=== PATIENT | male | born 1945 | race Caucasian/White ===

== ENCOUNTER 2023-03-10 23:32 | Observation (INO) | payer MEDICARE, OTHER, SELFPAY ==
[2023-03-10 19:32] VITALS: BP 98/68
[2023-03-10 20:18] LABS: % Basophils 0.2 % (0-2); % Eosinophils 0.1 % (0-6); % Immature Granulocytes 0.2 % (0-0.5); % Lymphocytes 10.7 % (20.5-51.1); % Neutrophils 76.8 % (42.2-75.2); Absolute Lymphocytes 0.9 10^3/uL (1.2-3.4); Absolute Neutrophils 6.5 10^3/uL (1.4-6.5); Hematocrit 40.5 % (39.0-52.0); Hemoglobin 14.4 g/dL (13.0-18.0); Mean Corp Hgb Conc. 35.6 g/dL (33.0-37.0); Mean Corpuscular Hgb 30.8 pg (27.0-31.0); Mean Corpuscular Volume 86.5 fL (80.0-94.0); Nucleated Red Blood Cells % 0 % (-); Red Blood Cell Count 4.68 10^6/uL (4.70-6.10); White Blood Cell Count 8.5 10^3/uL (4.8-10.8)
[2023-03-10 20:41] LABS: Platelet Count 84 10^3/uL (130-400)
--- NOTE | 2023-03-10 20:41 | ED.GENMED ---
History of Present Illness
General
Chief Complaint: Weakness
Source: patient
Exam Limitations: none
Time Seen by Provider: 03/10/23 20:26
Nursing documentation reviewed up to this point in time: agreed with
Travel History
Have you had any contact with someone who has COVID-19?: No
Do you have any symptoms of coronavirus? Fever > 100 degrees, chills, cough, shortness of breath, sore throat, loss of taste or smell, muscle aches, or headache?: No
History of Present Illness
History of Present Illness:
The patient is a 78-year-old man with a past medical history of coronary artery disease brought in by his for 2 days of intermittent confusion and disorientation, as well as decreased appetite, body aches and fatigue. The patient denies
specific pain. He reports overall severe generalized weakness and bodyaches. He reports a mild cough. He denies shortness of breath and chest pain. He denies abdominal pain. He reports mild constipation. He reports that he felt so weak that he
fell today in his closet and may have hit his head. His called 911 because she had a hard time getting him up off the closet floor.
Past History
Past History
ED Past Medical History: CAD, Cancer (Skin cancer), CHF, COPD, Hypercholesterolemia, NIDDM, [place], Psychiatric (Anxiety/ Depression) and Other (Sleep apnea, CPAP)
ED Past Surgical History: Cardiac (Pacer/ Defibulator)
Social History
Tobacco: Former smoker
Alcohol: Occasional
Drug: None
Personal:
Living: with family
Employment: Other
Family History
Family History: Other
Review of Systems
Review of Systems
Allergies reviewed?: Yes
Other source history: family
All Other Systems: ROS reviewed and negative except as documented in HPI and ROS
Constitutional: Reports fatigue
EENT: Reports no symptoms
Respiratory: Reports cough
Cardiac: Reports no symptoms
ABD/GI: Reports constipated and anorexia
: Reports no symptoms
Musculoskeletal: Reports muscle stiffness
Skin: Reports no symptoms
Neurological: Reports no symptoms
Endocrine: Reports no symptoms
Hematologic/Lymphatic: Reports no symptoms
Psychiatric: Reports no symptoms
Phy Exam
Physical Exam
Physical Exam:
Physical Exam
General: no apparent distress, not acutely ill. Atraumatic appearing face and head
Neck: supple. no meningeal signs. normal psoterior pharynx. Mild right paracervical neck tenderness without deformity
Heart: s1/s2 regular rate and rhythm, no vertebral spine tenderness
Lungs: no acute respiratory distress. clear bilaterally
Abdomen: normal bowel sounds. not tender. no CVAT
Neuro: alert and oriented. no focal neurological deficits
Skin: no rash
Psychiatric: well kept. interactive and cooperative
Extremities: no edema. no calf tenderness. negative homans. good distal pulses
Course
Orders/Labs/Results
Orders:
Orders
03/10/23 19:35
Electrocardiogram (*1) Urgent
Reason for Study: Fatigue / Weakness
EKG- Treatment ONCE
03/10/23 19:[address] [CT Head W/o Iv Contrast] Urgent
Comment:
Reason For Exam: fall with head strike
03/10/23 19:54
Complete Blood Count/With Diff Urgent
Comprehensive Metabolic Panel Urgent
TSH Urgent
Comment: ADD ON
03/10/23 19:55
Urinalysis Reflex To Culture Urgent
Date Specimen was Collected: 03/10/23
Time Specimen was Collected: 19:35
Urine Microscopic Reflex Cult Urgent
03/10/23 20:52
COVID-19 Antigen Urgent
Source: Nasal Swab
03/10/23 20:53
Add On- LAB Urgent
Tests Added?: TSH
03/10/23 20:54
CR Chest - 2 Views Urgent
Comment:
Reason For Exam: cough, weakness
03/10/23 21:02
CT Cervical Spine W/o Iv Contr Urgent
Comment:
Reason For Exam: fall, neck pain
03/10/23 21:04
Influenza A+B Rapid Molecular Urgent
TATO Source: Nasal Swab
Specimen Description:
03/10/23 22:09
0.9% Sodium Chloride 1000 ml [Nss] 1,000 ml IV BOLUS
Abnormal Lab Results
03/10/23 03/10/23
19:54 19:55
RBC 4.68 L 10^6/uL
(4.70-6.10)
Plt Count 84 L 10^3/uL
(130-400)
MPV 11.0 H fL
(7.4-10.4)
Absolute Lymphs (auto) 0.9 L 10^3/uL
(1.2-3.4)
Absolute Monos (auto) 1.0 H 10^3/uL
(0.1-0.6)
Neutrophils % 76.8 H %
(42.2-75.2)
Lymphocytes % 10.7 L %
(20.5-51.1)
Monocytes % 12.0 H %
(1.7-9.3)
Glucose 151 H mg/dl
(70-99)
Leukocyte Esterase Rfl Trace A
(Negative)
Urine Bacteria (Reflex) Few A
(Negative)
03/10/23 19:54
03/10/23 19:54
Vital Signs
Initial and Last Documented VS:
Initial Vital Signs
Temp Pulse Resp BP Pulse Ox
98.6 F 100 18 98/68 97
03/10/23 19:32 03/10/23 19:32 03/10/23 19:32 03/10/23 19:32 03/10/23 19:32
Last Documented Vital Signs
Temp Pulse Resp BP Pulse Ox
98.6 F 91 23 105/68 92
03/10/23 19:32 03/10/23 22:17 03/10/23 22:17 03/10/23 22:17 03/10/23 22:17
MDM/Problems Addressed
Differential Diagnosis Includes:
Pneumonia, UTI, dehydration
MDM/Problems Addressed:
Patient presents with acute generalized weakness, anorexia
Chronic conditions affecting care: CAD
*Radiology
Radiology exam reviewed: preliminary read by ED provider (Chest x-ray read by me. No acute disease) and radiology read reviewed
*Pulse Oximetry
Patient hypoxic: no
*EKG
Interpreted by ED Provider?: Yes
Interpretation: abnormal
Comparison EKG: no changes
Rate: normal
[place]: left axis deviation
Interval: normal interval
QRS Pattern: normal QRS
Ischemia: non-specific ST changes
*It Support Engineer Interpretation
Rate: normal
Interpretation: normal
Rhythm: sinus
*Critical Care Note
Total Time (30-74mins, 75-104mins- exclusive of procedures): Not Applicable
Data Reviewed
Review of Other/Old Records Reveals: Testing (EF 37% on echo from 09/2022)
Source: patient, spouse and previous hospital records
Patient Management
Social determinants of health affecting care: Living situation
Discussion with other providers: Hospitalist
Escalation/DeEscalation of care consider admission/obs:
is adamant that she does not feel comfortable taking her home due to his frequent falls and intermittent disorientation and confusion. She is insisting that he stay in the hospital for an MRI brain to rule out TIAs.
ED Attending Note
-
Portions of this chart may have been created with voice recognition software.� Occasional wrong word or��sound alike� substitutions may have occurred due to the inherent limitations of voice recognition software.
Discharge Plan
Departure
Patient Disposition: Admit
Date of Disposition: 03/10/23
Time of Disposition: 22:26
Admit to: Med/Surg
Presentation/result/management discussed w/ accepting MD/DO: Hospitalist
Discharge Problem:
Acute alteration in mental status
Interventions
Interventions:
*Risk Screen - Suicide Last Done: 03/10/23 19:32
*General Assessment Last Done: 03/10/23 19:32
*Neglect/Abuse Screening Last Done: 03/10/23 19:32
ED- Fall Risk Assessment Last Done: 03/10/23 21:02
*ED COVID-19 Vaccine History Last Done: 03/10/23 19:32
ED- Cardiac Assessment Last Done: 03/10/23 21:02
ED- Neurological Assessment Last Done: 03/10/23 20:54
ED- Pulmonary Assessment Last Done: 03/11/23 00:05
[2023-03-10 20:42] LABS: ALT (SGPT) 24 U/L (0-50); AST (SGOT) 26 U/L (17-59); Alkaline Phosphatase 59 U/L (38-126); Blood Urea Nitrogen 15 mg/dl (9-20); Calcium 9.6 mg/dl (8.4-10.2); Carbon Dioxide 28 mmol/L (22-30); Chloride 99 mmol/L (98-107); Glucose 151 mg/dl (70-99); Potassium 4.7 mmol/L (3.5-5.1); Sodium 138 mmol/L (135-145); Total Protein 6.6 g/dl (6.3-8.2); eGFR > 60.00
[2023-03-10 20:53] VITALS: BMI 29.3
[2023-03-10 21:15] LABS: COVID-19 Antigen Negative (Negative)
[2023-03-10 21:47] LABS: Urine Albumin Trace (Neg - Trace); Urine Bilirubin Negative (Negative); Urine Character Clear (Clear); Urine Color Yellow; Urine Glucose Negative (Negative); Urine Ketone Negative (Negative); Urine Leukocyte Trace (Negative); Urine Nitrite Negative (Negative); Urine Occult Blood Negative (Negative); Urine Urobilinogen Negative (Neg - 1+)
[2023-03-10 21:55] LABS: Urine Red Blood Cell None Seen /HPF (0-2); Urine Squamous Cell 0-2 /LPF (Few)
[2023-03-10 21:56] LABS: Urine Bacteria Few (Negative)
[2023-03-10 21:57] LABS: Urine Hyaline Cast 0-2 /LPF (0-2); Urine White Cell 0-2 /HPF (0-5)
[2023-03-10 21:58] LABS: TSH 0.91 uIU/ml (0.47-4.68)
[2023-03-10 22:17] VITALS: BP 105/68
[2023-03-10] MEDS: NSS 1000 IV (22:39)
--- NOTE | 2023-03-10 23:44 | HPS.HSE ---
Family Physician
-
Family Physician: Valeriano Bui
Chief Complaint
-
Incontinence / Weakness / Confusion
History of Present Illness
Patient is a 78y M with PMH significant for ASCVD, DM-II, CHF and COPD who presents to ED for evaluation of weakness, urinary incontinence and confusion. History obtained from patient and his at the bedside. Patient has had two episodes in
the past 6 weeks of nocturnal confusion, ataxia, incontinence followed by period of lethargy, weakness and 'not being himself' the following day. The initial episode occurred in January (01/21/23) and the second occurred last PM followed by
confusion and weakness today.
describes the episodes as patient waking around 1AM on both occasions stating he has the urge to urinate. He is incontinent of urine in the bed and then is able (with some difficulty) to getup and get to the bathroom. He has unsteady gait and
in January he fell on his way to the bathroom. Patient continues to be incontinent on the way to the bathroom and in the bathroom.
describes that he seems confused / staring blankly; however, she also notes that he does speak to her / answer questions. He was apparently standing in the shower, not moving - but responded angrily 'I am' when told him to wash himself.
The following day, patient was sluggish and seemed somewhat confused throughout the day.
He was brought to the ED here where evaluation including labs, urinalysis and CT of the head were all unremarkable.
Patient was discharged to home and had no similar episodes until last PM.
He again woke around 1 AM with urge to urinate and was incontinent in bed. On this occasion, he ambulated into the bathroom on his own and closed the door. He was again incontinent on the floor; however, on this occasion he began to clean the mess
himself. He was again speaking / answering 's questions. Today patient was lethargic and confused at times. He seemed to be his usual self for a brief period this afternoon; however, then found him on the floor of a closet appearing
'ashen' and confused. He was unable to get up - even with assistance and 20 minutes of effort on his 's part. EMS was called and patient was brought to the ED for further evaluation.
Patient teja do admit that he has been having some issues with poor memory / 'absent-mindedness' for some time now.
He has some numbness / tingling in the LUE that has been present x years. No other / new focal numbness or weakness.
In the ED at present, patient is resting comfortably. He denies any complaints at present.
Medical History
Past Medical History
Past Medical History: Reports Other
Additional Past Medical History:
ASCVD
Chronic HFrEF
Hypertension
DM-II
COPD
Past Surgical History: Reports Other
Additional Past Surgical History:
PTCA
AICD Placement
Skin Cancer Excisions
Social History
Tobacco: Former Smoker (Quit many years ago.)
Alcohol: Occasional
Drug: None
Personal:
Living: With Family
Family History
Family History: Other (Father: Prostate cancer Brother: Prostate cancer Mother: Pancreatic cancer)
Allergies / Home Medications
Allergies reflects when Allergies were last updated in [employer].
Home Medications with original date entered in [employer]
Allergy/Medication List:
Allergies
Allergy/AdvReac Type Severity Reaction Status Date / Time
No Known Allergies Allergy Verified 01/21/23 16:46
Home Medications
sertraline 50 mg tablet 50 mg PO DAILY 02/17/19
tamsulosin 0.4 mg capsule 0.4 mg PO QPM 02/17/19
carvedilol 3.125 mg tablet 3.125 mg PO BID #60 tabs 02/21/19
pantoprazole 40 mg tablet,delayed release 40 mg PO DAILY #30 tabs 02/21/19
atorvastatin 80 mg tablet 80 mg PO QPM #30 tabs 02/28/20
albuterol sulfate 90 mcg/actuation aerosol inhaler 2 puff inhalation R Q4 PRN sob/wheezing 03/10/23
aspirin 81 mg tablet,delayed release 81 mg PO DAILY 03/10/23
budesonide-formoterol HFA 160 mcg-4.5 mcg/actuation aerosol inhaler (Symbicort) 2 puff inhalation R BID 03/10/23
ezetimibe 10 mg tablet 10 mg PO QPM 03/10/23
furosemide 20 mg tablet 20 mg PO DAILY PRN swelling 03/10/23
losartan 25 mg tablet 25 mg PO DAILY 03/10/23
metformin 500 mg tablet 500 mg PO BID@0800,1700 03/10/23
Review of Systems
-
History Source: Patient
A 12 point ROS was completed and negative except as noted: Yes
Constitutional: Reports Fatigue and Chills; Denies Fever
EENT: Denies Sore Throat or Runny Nose
Respiratory: Denies Cough or Trouble Breathing
Cardiac: Denies Chest Pain or Palpitations
Abdomen/GI: Reports Other (Occasional incontinence of stool.); Denies Abdominal Pain, Nausea, Vomiting or Diarrhea
: Reports Frequency, Incontinence and Other (Nocturia); Denies Dysuria
Musculoskeletal: Denies Joint Pain, Joint Swelling or Edema
Neurological: Reports Numbness (LUE - chronic and unchanged.); Denies Dizzy, Headache or Weakness
Physical Exam
Vital Signs
Vital Signs
Temp Pulse Resp BP Pulse Ox
98.6 F 91 23 105/68 92
03/10/23 19:32 03/10/23 22:17 03/10/23 22:17 03/10/23 22:17 03/10/23 22:17
Physical Exam
General: Other (78y M in no acute distress.)
HEENT: Moist mucous membranes and PERRLA
Respiratory: Clear; No Wheezes, Rales or Rhonchi
Cardiac: S1/S2 and Regular Rhythm; No Murmur
GI: Soft, Non Tender, Non Distended and Normal Bowel Sounds
Rectal: Other (Incontinent of small amount of stool in his brief. Prostate enlarged / symmetric with tenderness.)
Musculoskeletal: No Clubbing, No Cyanosis and No Edema
Neuro: AO x 3
Laboratory Results
-
03/10/23 19:54
03/10/23 19:54
Laboratory Results
Total Bilirubin 1.0 mg/dl (0.2-1.3) 03/10/23 19:54
AST 26 U/L (17-59) 03/10/23:54
ALT 24 U/L (0-50) 03/10/23:54
Alkaline Phosphatase 59 U/L (38-126) 03/10/23 19:54
Impression/Plan
-
A/P: Patient is a 78y M with PMH significant for ASCVD, CHF and DM-II who presents to ED for evaluation after episodes of weakness, confusion, incontinence, etc.
Confusion / Weakness
- Observe overnight for further evaluation and treatment.
- Etiology of symptoms is unclear at present.
- Rather extensive differential which includes atypical seizure activity, spinal stenosis, prostatitis, advancing dementia, etc.
- Initial labs and non-contrast CT scan are unremarkable.
- UA without evidence of infection.
- PT / OT evaluations.
- Follow neurologic exam for any changes / focality (none appreciated on admission).
- CVA seems unlikely given presentation.
- Neurology evaluation for additional recommendations / work-up.
- +/- advanced imaging - defer to Neurology.
Urinary Incontinence / Nocturia
BPH
- Urinary symptoms could be explained by BPH / retention; however, remainder of clinical presentation is unexplained.
- Continue tamsulosin and add finasteride.
- Check PSA - ? acute / chronic prostatitis.
- Levofloxacin for now and follow for improvement in urinary symptoms, etc.
ASCVD
Chronic HFrEF
- Stable. No chest pain / SOB.
- Exam without evidence for volume overload.
- Continue current CV med regimen.
- Follow for any changes.
Benign Hypertension
- Hold losartan acutely as BP 110s in the ED.
- Adjust regimen as needed for adequate control.
DM-II
- Stable. Hold PO medications.
- Follow glucose and cover with SSI as needed.
- Update A1C.
COPD without Acute Exacerbation
- Stable. No SOB or wheezing.
- Continue maintenance inhalers.
- Follow for any new complaints.
DVT Prophylaxis: SCDs
Code Status: Full
[2023-03-11] VITALS (16 sets, daily range): BP systolic 95–128; BP diastolic 54–86; PULSE 91–107; O2SAT 93; BMI 28.8
[2023-03-11] MEDS: LEVAQUIN 100 IV (04:52)
[2023-03-11 06:55] LABS: Hematocrit 36.3 % (39.0-52.0); Hemoglobin 12.8 g/dL (13.0-18.0); Mean Corp Hgb Conc. 35.3 g/dL (33.0-37.0); Mean Corpuscular Volume 87.9 fL (80.0-94.0); Mean Platelet Volume 11.1 fL (7.4-10.4); Platelet Count 147 10^3/uL (130-400); Red Blood Cell Count 4.13 10^6/uL (4.70-6.10); White Blood Cell Count 6.3 10^3/uL (4.8-10.8)
[2023-03-11 07:14] LABS: Blood Urea Nitrogen 14 mg/dl (9-20); Calcium 8.9 mg/dl (8.4-10.2); Carbon Dioxide 26 mmol/L (22-30); Chloride 102 mmol/L (98-107); Estimated Creatinine Clearance 77 ml/min; Glucose 149 mg/dl (70-99); Magnesium 1.8 mg/dl (1.6-2.3); Potassium 3.6 mmol/L (3.5-5.1); Sodium 138 mmol/L (135-145); eGFR > 60.00
[2023-03-11] MEDS: SYMBICORT 160/4.5 MCG INHALER 2 PUFF INH ×2 (07:24→20:20)
[2023-03-11 07:39] LABS: TSH Reflex To Free T4 1.27 uIU/ml (0.47-4.68)
[2023-03-11 07:46] LABS: Glucose - Point of Care 123 mg/dl (70-99)
[2023-03-11 08:19] LABS: PSA, Total - Screen 2.96 ng/ml (0.0-4.0)
--- NOTE | 2023-03-11 08:21 | CON.NEURO4 ---
Addendum entered and electronically signed by Ivan Alfonso MD 03/11/23 13:48:
Studies reviewed.
I have personally examined the patient. I reviewed and agree with the SPORTS THERAPIST's Note.
My addenda:
Awake, alert, interactive. No acute distress.
Speech intact. Defensive. Mild difficulty with two-step requests.
Follows 2-step requests w/o difficulty. No tremor.
Extra-ocular movements grossly intact.
Facial movements full and symmetric. Hearing intact to normal conversational volume.
Normal UE movements bilaterally.
Neck: full ROM.
Chest: no dyspnea
Heart: no JVD
Ext: (-) Clubbing, (-) Cyanosis, (-) Edema
IMPRESSIONS/RECOMMENDATIONS:
Abrupt onset of confusion with urinary incontinence
Differential diagnosis includes normal pressure hydrocephalus, seizure, degenerative neurological disorder such as Dementia with Lewy Bodies
check EEG
check blood work for treatable causes
outpatient neuropsychological testing
outpatient lumbar puncture
consider JUNI scan
Will continue to follow as outpatient.
Original Note:
Documented by User: Arin Tracy NP 03/11/23 12:51
Consultation - Neurology 4
-
CONSULTING PHYSICIAN: Ivan Alfonso MD
REFERRING PHYSICIAN: Hospitalists/Dr. Chiu
DICTATED BY: KODAK Manuel
DATE/TIME OF REQUEST: 03/11/23
DATE/TIME OF CONSULTATION: 03/11/23
Reason for Consultation: Confusion, urinary urgency/incontinence
History of Present Illness:
This is a 78-year-old left-handed male who has presented to the hospital on 03/10/23 with report of confusion, generalized weakness, body aches, and a fall with possible head trauma during the night at home. CT head and cervical spine were obtained
in the ER and are negative for any acute abnormalities. Per medical records, patient's reports that this is his second event, he had a similar event on 01/21/23. During these nocturnal events, he is confused, ataxic, and has urinary
urgency/incontinence followed by lethargy, disorientation, and starring blankly. Patient's recollection of these events is limited. He endorses that he has been mildly forgetful recently. He also endorses falling fairly frequently, about once per
month for the past year. He denies any warnign prior to falling, sometimes he trips. Last night's fall he reports he had bent over to pick something up and just went down. He always falls forward. He endorses that his balance has not been good for
'awhile.' He endorses urinary urgency most prominent at night, and he was supposed to have an outpatient urology evaluation today. He also notes a right hand tremor starting two years ago and a lesser left hand tremor starting one year ago. He
thinks he had an MRI brain two years ago that was unremarkable. He has CHASITY and reports stopping using his cpap 2 years ago when it was recalled, he no longer felt he needed it after that. Currently, he complains of a mild neck ache aggravated by
falling. He denies any headache, dizziness, vision changes, speech/swallow difficulty, numbness, weakness, chest pain, palpitations, and shortness of breath. He denies any history of TIA or stroke, he is taking aspirin 81mg daily for cardiac
purposes.
Past Medical History: CHF, COPD, HTN, HLD, NIDDM, SD, depression, anxiety, CHASITY (untreated)
Surgical History: AICD
Family History: Reviewed and noncontributory.
Social History: Former smoker. Occasional alcohol (one beer every other week). Denies illicit drug use.
Allergies: No known allergies.
Home Medications: See below.
Review of Symptoms:
Patient denies any fever, headache, chest pain, shortness of breath, GI or symptoms.
�Per the HPI.�All systems are reviewed negative except above.
Physical Exam:
The patient is afebrile, abdomen is nondistended, breathing is unlabored, skin is warm and dry, no edema.
NIH Stroke Scale:
I performed the NIH stroke scale on the patient on 03/11/23 at 0830. The patient scored 2 points on the NIH stroke scale assessment, which were assigned as follows: See below.
Neurologic Examination:
The patient is awake, alert and oriented x 3. Most recent holiday- , next holiday- . He is able to follow commands and answer questions appropriately. There is no aphasia or dysarthria. On cranial nerve assessment, pupils are
3 mm bilateral, round and reactive to light and accommodation. Visual diez are full. Extraocular movements are intact. Facial sensations are intact and bilaterally symmetrical, there is no facial asymmetry. Hearing is intact bilaterally to normal
conversation volume. Tongue palate and uvula are midline. Sternocleidomastoid strengths are full bilaterally. Motor strengths are 5/5 bilateral upper and lower extremities on medical research Rutledge scale. There is drift in the LLE. Distal
dysrhythmic low amplitude tremor in distal LUE, greater with action than at rest. Deep tendon reflexes are 2+ bilateral upper and lower extremities and Babinski is absent bilaterally. Sensations cold moderately reduced in distal lower extremities,
vibration mildly reduced in distal bilateral lower extremities. There was no extinction noted on double simultaneous stimulation. Coordination is intact by finger to nose bilaterally. Bulk loss in distal lower extremities. LUE satellites around
RUE. Slight ataxia RUE.
Lab Results: See below.
Neuro Imaging:
1. CT Head 03/10/23: No acute intracranial abnormality. Moderate age-related parenchymal atrophy with resultant ventriculomegaly, stable from prior.
2. CT Cervical Spine 03/10/23: No CT evidence for an acute posttraumatic abnormality of the cervical spine.
Differentials for the patient's presentation include:
1. Nocturnal urinary urgency/incontinence
2. Frequent falls. Peripheral neuropathy noted on exam.
3. Untreated CHASITY, concern for resultant sleep disorder
3. Tremor, some concern for Parkinson tremor
4. NPH possible given ventriculomegaly suggested by CT head
5. Slight RUE ataxia and RLE drift concerning for small ischemic stroke.
Patient has the following risk factors for their symptoms:
Recommendations:
-MRI brain noncontrast ordered/pending
-Routine EEG ordered/pending
-Continue aspirin 81mg daily
-PT/OT/ST evaluations
-Outpatient JUNI scan
-Needs new Cpap
-Neurological checks per unit guidelines
-Will follow pending results.
Discussed patient care with: Dr. Alfonso, the patient
Vital Signs and Labs
-
Vital Signs and Labs:
Vital Signs
Temp Pulse Resp BP Pulse Ox
99.1 F 97 18 111/83 93
03/11/23 08:00 03/11/23 11:09 03/11/23 11:09 03/11/23 10:57 03/11/23 07:29
Lab Results
03/11/23 06:11
03/11/23 06:11
Sodium 138 mmol/L (135-145) 03/11/23 06:11
Potassium 3.6 mmol/L (3.5-5.1) 03/11/23 06:11
BUN 14 mg/dl (9-20) 03/11/23 06:11
Glucose 149 mg/dl (70-99) H 03/11/23 06:11
Calcium 8.9 mg/dl (8.4-10.2) 03/11/23 06:11
Vitamin B12 207 pg/ml (239-931) L 03/11/23 06:11
Ur Buprenorphine Negative (Negative) 03/10/23 19:55
Medications
-
Active Medications
Generic Name Dose Route Start Last Admin
Trade Name Freq PRN Reason Stop Dose Admin
Acetaminophen 650 mg 03/11/23 00:46
Acetaminophen 325 Mg Tablet PO 04/08/23 00:45
Q4HPRN PRN
Mild Pain / Temp > 101
Aspirin 81 mg 03/11/23 08:00 03/11/23 11:35
Aspirin 81 Mg (Enteric Coated) Tablet PO 04/08/23 07:59 81 mg
DAILY NELLY Administration
Atorvastatin Calcium 80 mg 03/11/23 18:00
Atorvastatin (Lipitor) 80 Mg Tablet PO 04/08/23 17:59
QPM NELLY
Budesonide/Formoterol Fumarate 2 puff 03/11/23 08:00 03/11/23 07:24
Symbicort Inhaler 160/4.5 INH 04/08/23 07:59 2 puff
R BID NELLY Administration
Protocol
Carvedilol 3.125 mg 03/11/23 08:00 03/11/23 11:35
Carvedilol 3.125 Mg Tablet PO 04/08/23 07:59 3.125 mg
BID NELLY Administration
Dextrose 12.5 grams 03/11/23 00:46
Dextrose 50% (0.5 Grams/Ml) 50 Ml Syringe IV 04/08/23 00:45
[id number] PRN
hypoglycemia
Protocol
Finasteride 5 mg 03/11/23 08:00 03/11/23 11:35
Finasteride 5 Mg Tablet PO 04/08/23 07:59 5 mg
DAILY NELLY Administration
Glucagon 1 mg 03/11/23 00:46
Glucagon 1 Mg Vial IM 04/08/23 00:45
PRN PRN
hypoglycemia
Protocol
Levofloxacin/Dextrose 500 mg in 100 mls @ 100 mls/hr 03/11/23 02:00 03/11/23 04:52
Levaquin IV 100 mls
Q24H NELLY Administration
Insulin Aspart 0 units 03/11/23 07:30 03/11/23 09:18
Insulin Aspart Low Resistance 300 Units/3 Ml Pen.Injctr SC 04/08/23 07:29 Not Given
AC NELLY
Protocol
Pantoprazole Sodium 40 mg 03/11/23 08:00 03/11/23 11:35
Pantoprazole 40 Mg Delayed Release Tablet PO 04/08/23 07:59 40 mg
DAILY NELLY Administration
Sertraline HCl 50 mg 03/11/23 08:00 03/11/23 11:35
Sertraline 50 Mg Tablet PO 04/08/23 07:59 50 mg
DAILY NELLY Administration
Sodium Chloride 0 flush 03/11/23 01:00
Sodium Chloride 0.9% (Flush) Syringe IV 04/08/23 00:59
PER PROTOCOL NELLY
Tamsulosin HCl 0.4 mg 03/11/23 18:00
Tamsulosin 0.4 Mg Capsule PO 04/08/23 17:59
QPM NELLY
Thiamine HCl 200 mg 03/11/23 10:00 03/11/23 11:36
Thiamine (100 Mg/Ml) 2 Ml Vial IV 04/08/23 09:59 200 mg
DAILY NELLY Administration
Home Medications
Medication Instructions Recorded
sertraline 50 mg tablet 50 mg PO DAILY Mental 02/17/19
Health/Anxiety
tamsulosin 0.4 mg capsule 0.4 mg PO QPM Urinary Issue 02/17/19
carvedilol 3.125 mg tablet 3.125 mg PO BID #60 tabs 02/21/19
pantoprazole 40 mg tablet,delayed 40 mg PO DAILY #30 tabs 02/21/19
release
atorvastatin 80 mg tablet 80 mg PO QPM #30 tabs 04/08/19
albuterol sulfate 90 mcg/actuation 2 puff inhalation R Q4 PRN 03/10/23
aerosol inhaler sob/wheezing
aspirin 81 mg tablet,delayed 81 mg PO DAILY Blood Clot 03/10/23
release Prevention/Tx
budesonide-formoterol HFA 160 2 puff inhalation R BID 03/10/23
mcg-4.5 mcg/actuation aerosol Lung/Breathing Issues
inhaler (Symbicort)
ezetimibe 10 mg tablet 10 mg PO QPM High Cholesterol 03/10/23
furosemide 20 mg tablet 20 mg PO DAILY PRN swelling 03/10/23
losartan 25 mg tablet 25 mg PO DAILY Blood Pressure 03/10/23
metformin 500 mg tablet 500 mg PO BID@0800,1700 Diabetes 03/10/23
NIH Stroke Score
Subsequent NIH Scale
Date of Subsequent NIH Scale: 03/11/23
Time of Subsequent NIH Scale: 08:20
NIH Stroke Score
Level of Consciousness: 0 - Alert
LOC Questions: 0-Answers both correctly
LOC Commands: 0-Performs both correctly
Best Horizontal Gaze: 0-Normal
Visual Diez: 0=Normal, no visual loss
Facial Palsy: 0=Normal, symmetrical
Motor - Right Arm: 0=No drift 10 seconds
Motor - Left Arm: 0=No drift 10 seconds
Motor - Right Le-Drift < 5 seconds
Motor - Left Le-No drift 5 seconds
Limb Ataxia: 1-Present in one limb
Sensation: 0-Normal
Best Language: 0-No aphasia
Dysarthria: 0-Normal
Extinction and Inattention: 0-No abnormality
Total Score:: 2

Documented by User: Ivan Alfonso MD 03/11/23 13:04
Consultation - Neurology 4
-
CONSULTING PHYSICIAN: Ivan Alfonso MD
REFERRING PHYSICIAN: Hospitalists/Dr. Chiu
DICTATED BY: KODAK Manuel
DATE/TIME OF REQUEST: 03/11/23
DATE/TIME OF CONSULTATION: 03/11/23
Reason for Consultation: Confusion, urinary urgency/incontinence
History of Present Illness:
This is a 78-year-old left-handed male who has presented to the hospital on 03/10/23 with report of confusion, generalized weakness, body aches, and a fall with possible head trauma during the night at home. CT head and cervical spine were obtained
in the ER and are negative for any acute abnormalities. Per medical records, patient's reports that this is his second event, he had a similar event on 01/21/23. During these nocturnal events, he is confused, ataxic, and has urinary
urgency/incontinence followed by lethargy, disorientation, and starring blankly. Patient's recollection of these events is limited. He endorses that he has been mildly forgetful recently. He also endorses falling fairly frequently, about once per
month for the past year. He denies any warning prior to falling, sometimes he trips. Last night's fall he reports he had bent over to pick something up and just went down. He always falls forward. He endorses that his balance has not been good for
'awhile.' He endorses urinary urgency most prominent at night, and he was supposed to have an outpatient urology evaluation today. He also notes a right hand tremor starting two years ago and a lesser left hand tremor starting one year ago. He
thinks he had an MRI brain two years ago that was unremarkable. He has CHASITY and reports stopping using his cpap 2 years ago when it was recalled, he no longer felt he needed it after that. Currently, he complains of a mild neck ache aggravated by
falling. He denies any headache, dizziness, vision changes, speech/swallow difficulty, numbness, weakness, chest pain, palpitations, and shortness of breath. He denies any history of TIA or stroke, he is taking aspirin 81mg daily for cardiac
purposes.
Past Medical History: CHF, COPD, HTN, HLD, NIDDM, SD, depression, anxiety, CHASITY (untreated)
Surgical History: AICD
Family History: Reviewed and noncontributory.
Social History: Former smoker. Occasional alcohol (one beer every other week). Denies illicit drug use.
Allergies: No known allergies.
Home Medications: See below.
Review of Symptoms:
Patient denies any fever, headache, chest pain, shortness of breath, GI or symptoms.
�Per the HPI.�All systems are reviewed negative except above.
Physical Exam:
The patient is afebrile, abdomen is nondistended, breathing is unlabored, skin is warm and dry, no edema.
NIH Stroke Scale:
I performed the NIH stroke scale on the patient on 03/11/23 at 0830. The patient scored 2 points on the NIH stroke scale assessment, which were assigned as follows: See below.
Neurologic Examination:
The patient is awake, alert and oriented x 3. Most recent holiday- , next holiday- . He is able to follow commands and answer questions appropriately. There is no aphasia or dysarthria. On cranial nerve assessment, pupils are
3 mm bilateral, round and reactive to light and accommodation. Visual diez are full. Extraocular movements are intact. Facial sensations are intact and bilaterally symmetrical, there is no facial asymmetry. Hearing is intact bilaterally to normal
conversation volume. Tongue palate and uvula are midline. Sternocleidomastoid strengths are full bilaterally. Motor strengths are 5/5 bilateral upper and lower extremities on medical research Rutledge scale. There is drift in the LLE. Distal
dysrhythmic low amplitude tremor in distal LUE, greater with action than at rest. Deep tendon reflexes are 2+ bilateral upper and lower extremities and Babinski is absent bilaterally. Sensations cold moderately reduced in distal lower extremities,
vibration mildly reduced in distal bilateral lower extremities. There was no extinction noted on double simultaneous stimulation. Coordination is intact by finger to nose bilaterally. Bulk loss in distal lower extremities. LUE satellites around
RUE. Slight ataxia RUE.
Lab Results: See below.
Neuro Imaging:
1. CT Head 03/10/23: No acute intracranial abnormality. Moderate age-related parenchymal atrophy with resultant ventriculomegaly, stable from prior.
2. CT Cervical Spine 03/10/23: No CT evidence for an acute posttraumatic abnormality of the cervical spine.
Differentials for the patient's presentation include:
1. Nocturnal urinary urgency/incontinence
2. Frequent falls. Peripheral neuropathy noted on exam.
3. Untreated CHASITY, concern for resultant sleep disorder
3. Tremor, some concern for Parkinson tremor
4. NPH possible given ventriculomegaly suggested by CT head
5. Slight RUE ataxia and RLE drift concerning for small ischemic stroke.
Patient has the following risk factors for their symptoms:
Recommendations:
-MRI brain noncontrast ordered/pending
-Routine EEG ordered/pending
-Continue aspirin 81mg daily
-PT/OT/ST evaluations
-Outpatient JUNI scan
-Needs new Cpap
-Neurological checks per unit guidelines
-Will follow pending results.
Discussed patient care with: Dr. Alfonso, the patient
NIH Stroke Score
NIH Stroke Score
Total Score:: 2
[2023-03-11 08:37] LABS: Amphetamines Negative (Negative); Barbiturates Negative (Negative); Benzodiazepines Negative (Negative); Buprenorphine Negative (Negative); Cocaine Negative (Negative); Marijuana Negative (Negative); Methadone Negative (Negative); Methamphetamines Negative (Negative); Opiates Negative (Negative); Phencyclidine Negative (Negative); Tricyclic Antidepressants Negative (Negative)
[2023-03-11 08:40] LABS: Alcohol None Detected
[2023-03-11 08:55] LABS: Folate 10.9 ng/ml (2.76-20); Vitamin B12 207 pg/ml (239-931)
[2023-03-11 09:33] LABS: Glycohemoglobin (HgbA1c) 7.2 % (4.0-5.6)
--- NOTE | 2023-03-11 11:30 | PTOTSP ---
Speech Language Pathology
Pt seen for clinical bedside swallow evaluation. Unable to also complete cognitive-linguistic evaluation at this time given time constraints with pt going for MRI. Seen with lunch tray of regular solids and thin liquids. Rapid rate of intake
noted. No overt signs of aspiration.
and sons reported frequent coughing both with and without P.O. intake at baseline. reported choking episode 2 weeks ago with pt's face turning purple, but he was able to clear this independently. Upon further questioning, they state this
happens approximately 1x/month for years, always with food.
Recommend:
(1) Continue regular solids/thin liquids
(2) Aspiration precautions: slow rate, sit upright
(3) Meds as tolerated
(4) Will consider VSE pending workup
(5) SPINNER TENDER to continue to follow to ensure diet tolerance and for cognitive-linguistic evaluation.
[2023-03-11] MEDS: COREG 3.125 MG PO ×2 (11:35→19:57)
[2023-03-11] MEDS: ZOLOFT 50 MG PO (11:35)
[2023-03-11] MEDS: PROSCAR 5 MG PO (11:35)
[2023-03-11] MEDS: ASPIR LOW (ENTERIC COATED) 81 MG PO (11:35)
[2023-03-11] MEDS: PROTONIX 40 MG PO (11:35)
[2023-03-11] MEDS: THIAMINE INJECTION 200 MG IV (11:36)
[2023-03-11] MEDS: ATIVAN 1 MG PO (11:46)
--- NOTE | 2023-03-11 14:12 | PTCARENOTE ---
pt admitted from ED post MRI. offers no complaints of pain able to answer all orientation questions, appears to be completely cognitively intact and appropriate. Tremors noted B/L hands- and pt state this is not new and pt 'was tested for
Parkinsons in 2019, and it was negative' LCTA B/L on RA. round obese abd +bsx4, pt reports last BM yesterday. skin cdi, no edema +pp
[2023-03-11 14:34] LABS: Glucose - Point of Care 154 mg/dl (70-99)
[2023-03-11] MEDS: VITAMIN B-12 1000 MCG PO (15:25)
--- NOTE | 2023-03-11 16:37 | EEG.RPT ---
Electroencephalogram Report
Recording
Date of EE03/11/23
Type of EEG: Routine
Length of EEG recordin mins
Done with Video Recording: Yes
Patient Status: Inpatient
Recording Conditions: Awake
Hyperventilation Performed: No
Photic Stimulation Performed: Yes
Report
METHODS
A 21 channel digitized electroencephalogram was performed at [facility]. The 10/20 international system of electrode placement was used. The duration of the recording was 63 minutes.
BACKGROUND
During the awake state, with the eyes closed, the background consisted of a normal amplitude, 11 Hertz posterior reactive rhythm that attenuated appropriately with eye opening. Beta activity was distributed diffusely with an anterior predominance.
There was a normal anterior-posterior voltage gradient. With eye opening the background activity changed to a low voltage mixture of alpha, beta, and occasional theta range frequencies. There were no significant asymmetries of background activity
noted.
SLEEP
Stage II sleep was obtained and consisted of symmetrical sleep spindles and vertex sharp waves.
PHOTIC STIMULATION
Photic stimulation using a step-smith increase in photic frequency varying from 1-31 Hertz resulted in no driving responses but no appearance of abnormal activity.
ABNORMAL EEG ACTIVITY
None
CLINICAL EVENTS
None
INTERPRETATION AND CLINICAL CORRELATION
This EEG is normal during the awake and sleep states as well as during the activation procedure of photic stimulation. No seizures were noted during the recording. A normal EEG, in itself, does not rule out a diagnosis of epilepsy. If clinical
suspicion for seizure persists, a sleep-deprived and/or prolonged recording may be warranted.
--- NOTE | 2023-03-11 16:48 | W.PN.HOSP.TC ---
Addendum entered and electronically signed by Brayan Landry MD 03/11/23 18:42:
Patient seen and examined
Discussed with resident
Discussed with neurology
78 years old male presents with repeated episodes of confusion, unresponsiveness and weakness
Neurologic exam with no focal findings
Initial differential diagnosis orthostasis given cardiovascular status, multiple medications, TIA/CVA, less likely, atypical seizure. Also concern for NPH.
Imaging including MRI of the brain with no acute findings. Concern for NPH.
Incontinent, although urinalysis not consistent with UTI.
Will check orthostatic vitals while resuming cardiovascular regimen including Coreg, losartan, furosemide. Also on tamsulosin.
Physical therapy assessment
Monitor overnight.
If stable discharged with outpatient neurology/neurosurgery follow-up for NPH workup
Original Note:
Today's Communication/Plan
-
- Continue home medication regimen
- Continue monitoring for Incontinence and Confusion
- Continue IV thiamine
- Awaiting Uro consult.
Assessment / Plan
Assessment / Plan
Impression:
A 78 Yo M with PMHx of CHF, COPD, HTN, HLD, NIDDM, MO, depression, anxiety, CHASITY not on CPAP presents to the ER with altered mental status/confusion, urinary continence, weakness and fatigue.
Plan:
Altered Mental Status/Confusion and weakness -
Normal electrolytes, Liver function, Kidney function, negative urine analysis and chest x ray WNL - not toxic metabolic encephalopathy.
Most likely absent seizures vs advancing dementia vs Normal pressure hydrocephalous vs low vitamin B12 ( titers at 207 - borderline)
PSA, Mg, folate levels WNL
Neuro Imaging:�
CT Head 03/10/23: No acute intracranial abnormality. Moderate age-related parenchymal atrophy with resultant ventriculomegaly, stable from prior.
CT Cervical Spine 03/10/23: No CT evidence for an acute posttraumatic abnormality of the cervical spine
MRI head - 03/11/23 - No acute infarct.
MRI findings, as described, which would be characteristic for normal pressure hydrocephalus in the proper clinical setting.
EEG - 03/11/23 - This EEG is normal during the awake and sleep states as well as during the activation procedure of photic stimulation. No seizures were noted during the recording. A normal EEG, in itself, does not rule out a diagnosis of epilepsy.
If clinical suspicion for seizure persists, a sleep-deprived and/or prolonged recording may be warranted.
PT/OT evaluations
Neurology on Board, evaluating etiology.
Urinary Incontinence / Nocturia
BPH
Continue tamsulosin and add finasteride. PSA WNL
Levofloxacin discontinued
Urology consulted - On board- plan TBD
Chronic HFrEF
denies chest pain, no pedal edema
Continue current home medication regimen for HF
Monitor RFT, and I & O, and weights
Hypertension
Losartan on hold, BP<120/80 today.
Monitor BP levels - Trend
Adjust regimen as needed for adequate control.
DM-II
HbA1C at 7.4
Insulin basal bolus regimen - low resistance
Home oral anti hyperglycemic regimen on hold
COPD
Denies SOB or wheezing, not in exacerbation
Continue home maintenance inhaler therapy
Follow up
DVT Prophylaxis
SCD
Code
Full code
.
Anticipated Discharge: 24 - 48 hours
Subjective/Interval History
-
Date of Service: March 11, 2023
Patient is oriented to time, person and place
Patient is still incontinent with urine.
Objective Data
-
Labs:
Laboratory Results
03/11/23
06:11
WBC 6.3
Hgb 12.8 L
Hct 36.3 L
Plt Count 147 D
Sodium 138
Potassium 3.6
Chloride 102
Carbon Dioxide 26
BUN 14
Creatinine 0.9
Glucose 149 H
Calcium 8.9
Vital Signs:
Vital Signs
Temp Pulse Resp BP Pulse Ox
98.1 F 96 16 116/77 92
03/11/23 13:15 03/11/23 13:15 03/11/23 13:15 03/11/23 13:15 03/11/23 13:15
Review of Systems
-
History Source: Patient
Constitutional: Reports Weakness
Respiratory: Reports No Symptoms
Cardiac: Reports No Symptoms
Abdomen/GI: Reports No Symptoms
Genitourinary: Reports Incontinence (continuous incontinence)
Neuro: Reports Weakness and Other (walking instability)
Physical Exam
-
General: No Apparent Distress and Comfortable
HEENT: Normocephalic, Atraumatic and Moist Mucous Membranes
Respiratory: Clear to Auscultation and Other (No wheezes, rales and ronchi)
Cardiac: Regular Rhythm, S1/S2 and Other (No murmur, rubs and gallops)
GI: Soft, Nontender, Nondistended and Normal Bowel Sounds
Musculoskeletal: No Edema
Skin: Warm
Neuro: AO x 3, DTR's Intact & Symmetrica and Other (ataxia present.)
Psych: Calm
[2023-03-11 17:31] LABS: Glucose - Point of Care 113 mg/dl (70-99)
[2023-03-11] MEDS: LIPITOR 80 MG PO (17:41)
[2023-03-11] MEDS: FLOMAX 0.400000000000000022 MG PO (17:41)
[2023-03-11 21:37] LABS: Glucose - Point of Care 125 mg/dl (70-99)
[2023-03-12 03:53] VITALS: BP 102/61
[2023-03-12 06:00] VITALS: BMI 28.6
--- NOTE | 2023-03-12 07:15 | W.PN.NEURO.1 ---
Today's Communication / Plan
-
-Outpatient evaluation for NPH, with PT evaluation before and after a large volume lumbar puncture
-Discussed the suspected NPH diagnosis, evaluation, potential for [employer] shunt in the future
-Would see urology as outpatient for thorough evaluation
-No changes to home medications recommended at this time
-Mobilization
-Outpatient neurology follow up
Will sign off call with questions and concerns
Neuro Assessment/Plan
Assessment
78-year-old male presenting to hospital due to new and significant urinary incontinence which was associated with confusion, presented to hospital with confusion generalized weakness body aches and fall.
EEG showed normal study
MRI showed no acute findings but did show dilated ventricles suggestive of normal pressure hydrocephalus in the appropriate clinical
Patient reports a history of tremor in the right hand starting approximately 2 years ago in the left hand starting approximately 1 year ago.
History of coronary artery disease COPD hypertension and untreated sleep apnea
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
several months, and an MRI supportive of NPH
Ddx would include other neurodegenerative disorders, toxic metabolic encephalopathy, medication list does not appear like this would be causative, CHASITY may contribute some to cognitive issues if very sleep deprived
Subjective/Objective
Subjective Data
Date of Service: March 12, 2023
Patient reports some gait issues that have been noticeable over past several months, his mentions some occasional memory issues, urinary incontinence was new for him. Discussed NPH workup.
Objective Data
Vital Signs
Temp Pulse Resp BP Pulse Ox
99.7 F 94 18 102/61 95
03/12/23 03:53 03/12/23 03:53 03/12/23 03:53 03/12/23 03:53 03/12/23 03:53
Lab Results
03/11/23 06:11
03/11/23 06:11
Sodium 138 mmol/L (135-145) 03/11/23 06:11
Potassium 3.6 mmol/L (3.5-5.1) 03/11/23 06:11
BUN 14 mg/dl (9-20) 03/11/23 06:11
Glucose 149 mg/dl (70-99) H 03/11/23 06:11
Calcium 8.9 mg/dl (8.4-10.2) 03/11/23 06:11
Vitamin B12 207 pg/ml (239-931) L 03/11/23 06:11
Ur Buprenorphine Negative (Negative) 03/10/23 19:55
Patient Allergies
No Known Allergies Allergy (Verified 01/21/23 16:46)
Review of Systems
-
History Source: Patient
All other systems: Reviewed and negative
Constitutional: No Symptoms
EENT: No Symptoms Reported
Respiratory: No Symptoms
Cardiac: No Symptoms
Abdomen/GI: No Symptoms
Genitourinary: No Symptoms
Musculoskeletal: No Symptoms
Skin: No Symptoms
Neuro: Ataxia and Tremors
Endocrine: No Symptoms
Hematologic / Lymphatic: No Symptoms
Allergy / Immunology: No Symptoms
Physical Exam
-
General: No Apparent Distress and Comfortable
Eyes: No Ptosis
HEENT: Normocephalic
Neck: No Bruits Bilaterally
Respiratory: Clear to Auscultation
Cardiac: Regular Rhythm
GI: Normal Bowel Sounds
Skin: Unremarkable
Extremities: No Clubbing
Psych: Negative Confused
Extended Neurological Exam
Mood & Affect: Mood Unremarkable and Affect Unremarkable
Attention Span & Concentration: Awake, Alert and Interactive
Tremor: Hand Tremor Absent
Speech: Quality Unremarkable and Quantity Unremarkable; Negative Expressive Aphasia, Receptive Aphasia or Dysarthric
Cranial Nerve II: Left Eye: Pupillary Reactivity Unremarkable, Pupillary Size Unremarkable and Visual Diez Intact
Cranial Nerve II: Right Eye: Pupillary Reactivity Unremarkable, Pupillary Size Unremarkable and Visual Diez Intact
Cranial Nerves III, IV, : Extraocular Movement: Extraocular Movement Full in all Directions
Cranial Nerve VII: Facial Symmetry: Normal Facial Symmetry
Muscle Strength, Overall: Full Throughout
Muscle Bulk & Tone: Bulk Unremarkable
Pronator Drift: No Drift in Upper Extremities
Deep Tendon Reflexes: Trace Throughout
Vibration Sensation: Unremarkable
Touch Sensation: Unremarkable
Coordination: Mrbdxu-unzb-kfonix Testing Unremarkable
Babinski Sign: Absent Bilaterally
Gait & Station: Other (Unsteady, mildly wide based, independent, able to pick feet up adequately)
Modified [place] Score (MRS)
-
MRS Score:
Data Reviewed
-
CT Head: Report Reviewed and Image Reviewed
MRI Head: Report Reviewed and Image Reviewed
EEG: Report Reviewed
[2023-03-12] MEDS: SYMBICORT 160/4.5 MCG INHALER 2 PUFF INH (07:31)
[2023-03-12 08:15] VITALS: BP 116/73
[2023-03-12 08:34] LABS: Glucose - Point of Care 73 mg/dl (70-99)
[2023-03-12] MEDS: PROSCAR 5 MG PO (08:49)
[2023-03-12] MEDS: THIAMINE INJECTION 200 MG IV (08:50)
[2023-03-12] MEDS: PROTONIX 40 MG PO (08:50)
[2023-03-12] MEDS: COREG 3.125 MG PO (08:50)
[2023-03-12] MEDS: ASPIR LOW (ENTERIC COATED) 81 MG PO (08:50)
[2023-03-12] MEDS: ZOLOFT 50 MG PO (08:51)
[2023-03-12] MEDS: VITAMIN B-12 1000 MCG PO (08:51)
[2023-03-12 10:13] VITALS: BP 103/69; PULSE 92; O2SAT 92
--- NOTE | 2023-03-12 10:27 | W.PN.UPDATE ---
Update Note
Progress Note Update
I met with patient.
Given new diagnosis of NPH, which can cause NGB, inpatient urologic consultation is not indicated.
Patient voices understanding and agreement to reschedule outpatient evaluation with Dr Alcala after neurologic situation has been stabilized.
--- NOTE | 2023-03-12 10:48 | CM ---
Reviewed chart, met with patient to obtain information for assessment. Patient stated that he lives with his in a two story home with two steps to enter. He described himself as independent with his ADLs, personal care, dressing bathing and
toileting. He does not use an assistive device for ambulation.
Patient expressed no difficulty with clinic nurse, cooking, cleaning and laundry. His is with him most of the time and supportive. She babysits Mondays and Fridays but other than that is there with patient to support him with anything that
he needs.
Patient drives and can get to his appointments and does all his own shopping.
He has had VN services in the past through [facility]. He has been to acute rehab at [facility] [place] but denied SNF in the past.
Patient has a prescription plan and uses the [facility] on [address] for all of his medications.
His PCP is Dr. Valeriano Bui.
Patient would like to return home when medically cleared for discharge and does not anticipate any needs from .
Patient on OBS status. He signed observation form and form placed on chart. He had no questions or concerns.
Plan: Case management will continue to follow and assist with discharge planning. Home when stable.
[2023-03-12 11:28] VITALS: BP 98/63
--- NOTE | 2023-03-12 13:22 | W.DS.TRANS ---
DC Summary - [employer]
-
Discharge Instructions:
Discharge Diagnosis/Procedures Altered mental status with ongoing neurologic
work up
Diet Diabetic, Carb Controlled
Instructions:
Stand-Alone Forms:
Changes to Home Medications: No
Discharge Medications:
DC Medications w/original date entered in [facility]
sertraline 50 mg tablet 50 mg PO DAILY Mental Health/Anxiety 02/17/19
tamsulosin 0.4 mg capsule 0.4 mg PO QPM Urinary Issue 02/17/19
carvedilol 3.125 mg tablet 3.125 mg PO BID #60 tabs 02/21/19
pantoprazole 40 mg tablet,delayed release 40 mg PO DAILY #30 tabs 02/21/19
atorvastatin 80 mg tablet 80 mg PO QPM #30 tabs 04/08/19
albuterol sulfate 90 mcg/actuation aerosol inhaler 2 puff inhalation R Q4 PRN sob/wheezing 03/10/23
aspirin 81 mg tablet,delayed release 81 mg PO DAILY Blood Clot Prevention/Tx 03/10/23
budesonide-formoterol HFA 160 mcg-4.5 mcg/actuation aerosol inhaler (Symbicort) 2 puff inhalation R BID Lung/Breathing Issues 03/10/23
ezetimibe 10 mg tablet 10 mg PO QPM High Cholesterol 03/10/23
furosemide 20 mg tablet 20 mg PO DAILY PRN swelling 03/10/23
losartan 25 mg tablet 25 mg PO DAILY Blood Pressure 03/10/23
metformin 500 mg tablet 500 mg PO BID@0800,1700 Diabetes 03/10/23
cyanocobalamin (vitamin B-12) 1,000 mcg tablet 1,000 mcg PO DAILY #30 tabs 03/12/23
Home Medication Changes
Pending Results: No
[2023-03-12 13:28] LABS: Glucose - Point of Care 142 mg/dl (70-99)
[2023-03-12] MEDS: CYANOCOBALAMIN 1000 MCG IM (13:39)
== END 2023-03-12 15:52 | disposition home or self-care (01) ==
LOC: 3 WEST ACU 23:32
PROVIDERS: ADMITTING PHYSICIAN Hospitalist; ATTENDING PHYSICIAN Internal Medicine; CONSULT PHYSICIAN Psychiatry & Neurology Neurology; EMERGENCY PHYSICIAN Emergency Medicine; FAMILY PHYSICIAN Internal Medicine
DX: R41.0 Disorientation, unspecified (principal); R53.1 Weakness; W01.10XA Fall on same level from slipping, tripping and stumbling with subsequent striking against unspecified object, initial encounter; Y92.003 Bedroom of unspecified non-institutional (private) residence as the place of occurrence of the external cause; N40.1 Benign prostatic hyperplasia with lower urinary tract symptoms; N39.498 Other specified urinary incontinence; R05.9 Cough, unspecified; K59.00 Constipation, unspecified; J44.9 Chronic obstructive pulmonary disease, unspecified; R27.0 Ataxia, unspecified; R20.0 Anesthesia of skin; I25.10 Atherosclerotic heart disease of native coronary artery without angina pectoris; E78.00 Pure hypercholesterolemia, unspecified; G91.2 (Idiopathic) normal pressure hydrocephalus; I11.0 Hypertensive heart disease with heart failure; G62.9 Polyneuropathy, unspecified; E11.9 Type 2 diabetes mellitus without complications; R35.1 Nocturia; R29.6 Repeated falls; I25.2 Old myocardial infarction; F41.9 Anxiety disorder, unspecified; F32.A Depression, unspecified; J98.11 Atelectasis; G47.30 Sleep apnea, unspecified; I50.22 Chronic systolic (congestive) heart failure; Z85.828 Personal history of other malignant neoplasm of skin; Z87.891 Personal history of nicotine dependence; Z80.42 Family history of malignant neoplasm of prostate; Z80.0 Family history of malignant neoplasm of digestive organs; Z11.52 Encounter for screening for COVID-19
CPT/HCPCS: 70450; 70551; 71046; 72125; 80048; 80053; 80306; 81003; 81015; 82077; 82607; 82746; 82962; 83036; 83735; 84443; 85025; 85027; 87502; 87811; 92507; 92526; 92610; 93005; 94640; 95813; 96374; 97162; 97530; 99285; G0103; G0378

== ENCOUNTER → 2023-03-25 10:16 | Outpatient (REF) | payer MEDICARE, OTHER, SELFPAY ==
[2023-03-25 10:37] LABS: Hematocrit 39.1 % (39.0-52.0); Hemoglobin 13.5 g/dL (13.0-18.0); Mean Corp Hgb Conc. 34.5 g/dL (33.0-37.0); Mean Corpuscular Hgb 30.6 pg (27.0-31.0); Mean Corpuscular Volume 88.7 fL (80.0-94.0); Mean Platelet Volume 9.7 fL (7.4-10.4); Platelet Count 273 10^3/uL (130-400); Red Blood Cell Count 4.41 10^6/uL (4.70-6.10); Red Cell Dist. Width 13.6 % (11.5-14.5); White Blood Cell Count 7.1 10^3/uL (4.8-10.8)
[2023-03-25 10:39] VITALS: BP 111/68; BP_SYST 85
[2023-03-25 10:47] LABS: PT 13.2 Sec (11.4-14.6)
[2023-03-25 11:57] VITALS: BP 116/73; BP_SYST 83
[2023-03-25 12:12] VITALS: BP 122/79
[2023-03-25 13:48] LABS: CSF Clarity Clear; CSF Color Colorless; CSF Tube # 4
[2023-03-25 13:49] LABS: Red Cell Count/CSF 3 mm^3; White Cell Count/CSF 1 mm^3 (0-5)
[2023-03-25 14:05] LABS: Spinal Fluid Glucose 82 mg/dl (40-70); Spinal Fluid Protein 32 mg/dl (12-60)
== END ==
LOC: RADI 10:16
PROVIDERS: ATTENDING PHYSICIAN Student in an Organized Health Care Education/Training Program; FAMILY PHYSICIAN Internal Medicine
DX: G91.2 (Idiopathic) normal pressure hydrocephalus (principal); Z79.01 Long term (current) use of anticoagulants
CPT/HCPCS: 36415; 62328; 82945; 84157; 85027; 85610; 89051

== ENCOUNTER 2023-03-25 12:11 | Outpatient (RCR) | payer MEDICARE, OTHER, SELFPAY | END 2023-03-25 23:59 | disposition home or self-care (01) | LOC: ROT 12:11 | PROVIDERS: ATTENDING PHYSICIAN Student in an Organized Health Care Education/Training Program | DX: G91.2 (Idiopathic) normal pressure hydrocephalus (principal); Z73.6 Limitation of activities due to disability | CPT/HCPCS: 97110; 97112; 97116; 97162; 97166; 97535 ==

== ENCOUNTER → 2024-05-31 12:52 | Outpatient (REF) | payer MEDICARE, OTHER, SELFPAY ==
--- NOTE | 2024-05-31 13:30 | CARDSERVLU ---
Echocardiogram with [facility] completed after protocol screening completed. Allergies verified.
Patent IV site: ____new start 1st attempt 22P RAC_
IV site flushed with 0.9% NaCl pre and post administration.
Diluted bolus method utilized to enhance visualization of ventricular boyd.
Total volume given: ___2.0_ mL
site removed at completion of test.
Patient tolerated all procedures well without complications.
== END ==
LOC: RCS 12:52
PROVIDERS: ATTENDING PHYSICIAN Internal Medicine Cardiovascular Disease; FAMILY PHYSICIAN Internal Medicine
DX: I50.22 Chronic systolic (congestive) heart failure (principal)
CPT/HCPCS: 93306; Q9950

== ENCOUNTER → 2024-08-02 13:12 | Outpatient (REF) | payer MEDICARE, OTHER, SELFPAY | LOC: RAD 13:12 | PROVIDERS: ATTENDING PHYSICIAN Internal Medicine | DX: R05.1 Acute cough (principal) | CPT/HCPCS: 71046 ==

== ENCOUNTER → 2024-08-23 13:30 | Outpatient (REF) | payer MEDICARE, OTHER, SELFPAY | LOC: HWRAD 13:30 | PROVIDERS: ATTENDING PHYSICIAN Otolaryngology; FAMILY PHYSICIAN Internal Medicine | DX: R09.82 Postnasal drip (principal); J32.2 Chronic ethmoidal sinusitis | CPT/HCPCS: 70486 ==

== ENCOUNTER 2024-08-31 13:23 | Outpatient (RCR) | payer MEDICARE, OTHER, SELFPAY | END 2024-08-31 23:59 | disposition home or self-care (01) | LOC: RPT 13:23 | PROVIDERS: ATTENDING PHYSICIAN Internal Medicine | DX: M54.2 Cervicalgia (principal); M54.51 Vertebrogenic low back pain; Z73.6 Limitation of activities due to disability | CPT/HCPCS: 97010; 97110; 97162 ==

== ENCOUNTER 2024-10-05 15:10 | Outpatient (RCR) | payer MEDICARE, OTHER, SELFPAY | END 2024-10-05 23:59 | disposition home or self-care (01) | LOC: RPT 15:10 | PROVIDERS: ATTENDING PHYSICIAN Internal Medicine | DX: M54.2 Cervicalgia (principal); M54.51 Vertebrogenic low back pain; Z73.6 Limitation of activities due to disability; R26.2 Difficulty in walking, not elsewhere classified; M62.81 Muscle weakness (generalized) | CPT/HCPCS: 97010; 97110; 97112 ==

== ENCOUNTER 2024-11-02 15:51 | Outpatient (RCR) | payer MEDICARE, OTHER, SELFPAY | END 2024-11-02 23:59 | disposition home or self-care (01) | LOC: RPT 15:51 | PROVIDERS: ATTENDING PHYSICIAN Internal Medicine | DX: M54.2 Cervicalgia (principal); M54.51 Vertebrogenic low back pain; Z73.6 Limitation of activities due to disability; R26.2 Difficulty in walking, not elsewhere classified; M62.81 Muscle weakness (generalized) | CPT/HCPCS: 97010; 97110; 97112 ==

== ENCOUNTER 2024-11-09 14:51 | Outpatient (RCR) | payer MEDICARE, OTHER, SELFPAY | END 2024-11-10 06:57 | disposition home or self-care (01) | LOC: RPT 14:51 | PROVIDERS: ATTENDING PHYSICIAN Internal Medicine | DX: M54.2 Cervicalgia (principal); M54.51 Vertebrogenic low back pain; Z73.6 Limitation of activities due to disability; R26.2 Difficulty in walking, not elsewhere classified; M62.81 Muscle weakness (generalized) | CPT/HCPCS: 97010; 97110 ==